=== PATIENT | female | born 1990 | race Caucasian/White ===

== ENCOUNTER 2019-08-19 14:46 | Emergency (ER) | payer BC, SELFPAY ==
[2019-08-19] MEDS ORDERED: Dicyclomine 20 MG TAB ONE (15:18)
[2019-08-19] MEDS ORDERED: Ondansetron ODT 4 MG TAB ONE (15:18)
--- NOTE | 2019-08-19 15:50 | CT ---
CT abdomen and pelvis noncontrast HISTORY: Flank pain. FINDINGS: Each renal collecting system, ureter, and the urinary bladder are decompressed without ston e evident. Lack of contrast limits evaluation for other abnormalities. No evidence of bowel obstruction. No free air or free fluid visible. Gallbladder surgically absent. Ligation clips at each adnexa. IMPRESSION: No CT evidence of urinary tract obstruction or calcification.
== END 2019-08-19 15:50 | disposition home or self-care (01) ==
LOC: ERS 14:46
DX: R11.2 Nausea with vomiting, unspecified (principal); R10.30 Lower abdominal pain, unspecified; R10.812 Left upper quadrant abdominal tenderness; F41.9 Anxiety disorder, unspecified; F17.210 Nicotine dependence, cigarettes, uncomplicated
CPT/HCPCS: 74176; Q0162

== ENCOUNTER 2022-08-28 15:41 | Emergency (ER) | payer SELFPAY ==
[~2022-08-28 15:41] MED LIST: Iopamidol-370 76% 500 ML 1 ML ONE
[2022-08-28 16:11] LABS: Bilirubin Negative (Negative); Blood, Urine Negative (Negative); Clarity Clear (Clear); Glucose, Urine (Dipstick) Normal (Negative); Ketone, Urine Negative (Negative); Leukocyte Negative Leu/uL (Negative); Nitrite Negative (Negative); Protein, Urine (Dipstick) Negative (Neg-Trace); Specific Gravity, Urine 1.008 (1.002-1.036); Urobilinogen Normal mg/dL (Less than 2)
[2022-08-28 17:00] LABS: #Basophils 0.1 thou/uL (0.0-0.2); #Eosinphils 0.1 thou/uL (0.0-0.7); #Lymphocytes 3.6 thou/uL (1.20-3.40); #Monocytes 0.5 thou/uL (0.11-0.59); #Neutrophils 7.1 thou/uL (1.40-6.50); %Basophils 0.9 % (0.0-1.0); %Eosinophils 1.1 % (0.0-10.0); %Lymphocytes 31.3 % (21.0-51.0); %Monocytes 4.7 % (0.0-10.0); Mean Corpuscular HGB CONC 34.2 g/dL (32.0-36.0); Mean Corpuscular Hemoglobin 30.5 pg (27.0-31.0); Mean Corpuscular Volume 89.4 fL (78.0-98.0); Mean Platelet Volume 7.1 fL (7.4-10.4); Platelet Count 255 thou/uL (130-400); RBC Distribution Width 12.5 % (11.5-14.5); Red Blood Cell (RBC) Count 4.57 mill/uL (4.20-5.40); White Blood Cell (WBC) Count 11.4 thou/uL (4.8-10.8)
[2022-08-28 17:10] LABS: Pregnancy Test - Urine (BHCG) Negative (Negative); Pregu Control Background? CLEAR/WHITE (CLR/WHITE); Pregu Control Bar Appear? YES (CONTROL BAR); Specific Gravity 1.008 (1.002-1.036)
[2022-08-28 17:18] LABS: ALT (SGPT) 61 U/L (8-55); AST (SGOT) 21 U/L (5-34); Alkaline Phosphatase 71 U/L (40-110); Anion Gap 13 mmol/L (10-20); BUN (Urea Nitrogen) 5 mg/dL (7.0-18.7); Bilirubin, Total 0.4 mg/dL (0.2-1.2); Calc. Creatinine Clearance 0 mL/min (70-130); Calcium 8.8 mg/dL (7.8-10.44); Carbon Dioxide 23 mmol/L (22-29); Chloride 107 mmol/L (98-107); Estimated GFR 117; Globulin 2.7 g/dL (2.4-3.5); Glucose 90 mg/dL (70-105); Lipase 29 U/L (8-78); Potassium 3.5 mmol/L (3.5-5.1); Protein, Total 6.7 g/dL (6.0-8.3); Sodium 139 mmol/L (136-145)
[2022-08-28] MEDS ORDERED: Ketorolac Tromethamine 30 MG/ML VIAL ONE (17:31)
[2022-08-28] MEDS ORDERED: levETIRAcetam 500 MG/5 ML VIAL ONE (17:31)
== END 2022-08-28 18:30 | disposition home or self-care (01) ==
LOC: ERS 15:41
DX: R10.31 Right lower quadrant pain (principal); R10.813 Right lower quadrant abdominal tenderness; F17.210 Nicotine dependence, cigarettes, uncomplicated
CPT/HCPCS: 36415; 74177; 80053; 81003; 81025; 83690; 85025; 96374; J1885; J1953; Q9967